=== PATIENT | male | born 1965 | race Caucasian/White ===

== ENCOUNTER → 2017-07-03 11:44 | Outpatient (CLI) | payer MEDICARE, OTHER ==
--- NOTE | ~2017-07-03 | HEMODYNAMI ---
PATIENT:ESTEBAN QUIÑONES MEDICAL RECORD: [id number] : 67 LOCATION:[facility] ADMISSION DATE: 07/03/17 Generatedon:07/03/201715:35 Patient name: ESTEBAN QUIÑONES Patient #: [id number] SSN: : 1965 Date of study: 07/03/2017 Page: Of Hemodynamic Procedure Report Patient Data Patient Demographics Procedure consent was obtained First Name: ESTEBAN Gender: Male Last Name: NURIA : 1965 [facility] Initial: YESENIA Age: 52 year(s) Patient #: [id number] Race: Unknown Additional ID: [id number] Contact details [address]: [address] [place] [address] State: [place] City: [place] Zip code: [address] Past Medical History Allergies Allergen Reaction Date Comments Reported Other allergy 07/03/2017 BENZODIAZEPINES, CEPHALOSPORINS, CIPRO, FISH CONTAINING PRODUCTS, IDODINATED CONTRAST- ORAL AND IV DYE, IODINE, LATEX, MEPERIDINE, PCNS, SHELLFISH DERIVED, SUFLA, TETANUS VACCINES AND TOXOID, VALIUM Admission Admission Data Admission Date: 07/03/2017 Admission Time: 11:44 Weight (lbs.): 242 Weight (kg.): 109.77 Lab Results Lab Result Date: 07/03/2017 Lab Result Time: 0:00 Biochemistry Name Units Result Min Max BUN mg/dl 20 --(----)*- 7 18 Creatinine mg/dl 1 --(--*-)-- 0.6 1.3 CBC Name Units Result Min Max Hemoglobin g/dl 14.1 --(*---)-- 13.5 17.5 Procedure Procedure Types Cath Procedure Diagnostic Procedure LHC LHC w/Coronaries Procedure Description Procedure Date Procedure Date: 07/03/2017 Procedure Start Time: 15:24 Procedure End Time: 15:34 Procedure Staff Name Function Esteban Montiel MD Performing Physician Mónica Pelayo RT Monitor Lavon Aleman RT Scrub Alexandro Lantigua RN Nurse Procedure Data Cath Procedure Fluoroscopy Diagnostic fluoroscopy Total fluoroscopy Time: 2.3 time: 2.3 min min Diagnostic fluoroscopy Total fluoroscopy dose: 597 dose: 597 mGy mGy Contrast Material Contrast Material Type Amount (ml) Isovue 300 71 Entry Location Entry Primary Successful Side Size Upsize Upsize Entry Closure Cohen ccessful Closure Location (Fr) 1 (Fr) 2 (Fr) Remarks Device Remarks Radial Right 6 Fr Mechanical artery Short Compression Estimated blood loss: 5 ml Diagnostic catheters Device Type Used For End Catheter Placement DIAGNOSTIC [place] 110cm 5 Procedure Fr catheter ([id number]) Procedure Complications No complications Procedure Medications Medication Administration Route Dosage 0.9% NaCl I.V. 100 ml/hr Heparin Flush Bag added to field 2 bags (1000units/500ml NS) Lidocaine 2% added to field 20 Radial Cocktail added to field 1 syringe (Verapomil 2mg/Nitro 400mcg/Heparin 1500units) Radial Cocktail I.A. 1 syringe (Verapomil 2mg/Nitro 400mcg/Heparin 1500units) Hemodynamics Rest Heart Rate: 98 (bpm) Pressure Samples Time Site Value (mmHg) Purpose Heart Use Rate(bpm) 15:26 LV 133/4,10 Snapshot 90 15:27 AO 111/77(91) Pullback 102 15:27 LV 109/8,9 Pullback 102 Gradients Valve Time Site 1 Site 2 Mean SEP/DFP Peak To Heart Use (mmHg) (sec/min) Peak Rate (mmHg) (bpm) Aortic 15:27 LV AO 0 102 109/8,9 111/77(91) Calculations Valve P-P Mean Valve Index Valve Source Name Gradient Area Flow (cm2) Aortic 0 0 Snapshots Pre Cath Intra NCS Post Cath Vital Signs Time Heart Resp SPO2 etCO2 NIBP (mmHg) Rhythm Pain Sedation Rate (ipm) (%) (mmHg) Status Level (bpm) 14:58:45 92 17 96 0 136/80(105) NSR 0 (11) 10(A) , No pain 15:03:26 91 19 95 0 129/83(103) NSR 0 (11) 10(A) , No pain 15:08:05 95 20 93 0 131/78(99) NSR 0 (11) 10(A) , No pain 15:12:43 97 19 93 0 128/80(103) NSR 0 (11) 10(A) , No pain 15:17:20 96 21 92 0 133/83(104) NSR 0 (11) 10(A) , No pain 15:21:58 96 14 92 0 130/84(101) NSR 0 (11) 10(A) , No pain 15:26:37 94 23 91 0 133/80(100) NSR 0 (11) 10(A) , No pain 15:31:16 96 14 91 0 123/73(101) NSR 0 (11) 10(A) , No pain Medications Time Medication Route Dose Verified Delivered Reason Notes Effectiveness by by 14:55:39 0.9% NaCl I.V. 100 Alexandro Alexandro Per ml/hr Rhina Lantigua physician RN RN 14:56:10 Heparin Flush added 2 bags Alexandro Alexandro used for Bag to Lorgary Lantigua procedure (1000units/500ml field RN RN NS) 14:56:21 Lidocaine 2% added 20ml Alexandro Alexandro for local to vial Lorigan Rhina anesthetic field RN KEYON 14:56:38 Radial Cocktail added 1 Alexandro Alexandro used for (Verapomil to syringe Lorigan Lorigan procedure 2mg/Nitro field KEYON TA 400mcg/Heparin 1500units) 15:24:45 Radial Cocktail I.A. 1 Alexandro Esteban for (Verapomil syringe Lorigan Tiana vasodilation 2mg/Nitro KEYON RODRIGUEZ 400mcg/Heparin 1500units) Procedure Log Time Note 14:33:01 Patient Weight : 242 lbs 14:33:33 Signed procedure consent form obtained from patient. 14:33:35 Time tracking: Regular hours 14:33:39 Plan of Care:Hemodynamics will remain stable., Cardiac rhythm will remain stable., Comfort level will be maintained., Respiratory function will remain adequate., Patient/ family verbilizes understanding of procedure., Procedure tolerated without complication., Recovers from procedure without complications.. 14:33:51 H&P Date Dictated: 06/11/2017 Within 30 days and on chart.. 14:36:38 Patient allergic to Other allergyBENZODIAZEPINES, CEPHALOSPORINS, CIPRO, FISH CONTAINING PRODUCTS, IDODINATED CONTRAST- ORAL AND IV DYE, IODINE, LATEX, MEPERIDINE, PCNS, SHELLFISH DERIVED, SUFLA, TETANUS VACCINES AND TOXOID, VALIUM 14:38:05 Lab Result : Creatinine 1 mg/dl 14:38:05 Lab Result : BUN 20 mg/dl 14:38:05 Lab Result : Hemoglobin 14.1 g/dl 14:38:15 Lavon Love RT(R) sent for patient. Start room use. 14:43:58 Patient received from Pre/Post Procedure Room to CCL 1 Alert and oriented. Tansferred to table in Supine position. 14:43:59 Warm blankets applied, and fiordaliza hugger turned on for patient comfort. 14:43:59 Correct patient and procedure confirmed by team. 14:44:00 ECG and BP/O2 sat monitors applied to patient. 14:55:39 0.9% NaCl 100 ml/hr I.V. was administered by Alexandro Lantigua RN; Per physician; 14:56:10 Heparin Flush Bag (1000units/500ml NS) 2 bags added to field was administered by Alexandro Lantigua RN; used for procedure; 14:56:21 Lidocaine 2% 20ml vial added to field was administered by Alexandro Lantigua RN; for local anesthetic; 14:56:38 Radial Cocktail (Verapomil 2mg/Nitro 400mcg/Heparin 1500units) 1 syringe added to field was administered by Alexandro Lantigua RN; used for procedure; 14:57:57 Vital chart was started 14:58:02 Baseline sample Acquired. 14:58:08 Rhythm: sinus tachycardia 14:58:08 Full Disclosure recording started 14:58:10 Pre-procedure instructions explained to patient. 14:58:10 Pre-op teaching completed and patient verbalized understanding. 14:58:12 Family in patients room. 14:58:14 Patient NPO since Midnight. 14:58:16 Is the patient allergic to Iodine/contrast media? Yes. 14:58:17 Was the patient premedicated? Yes 14:58:18 Is patient on blood thinner?Yes 14:58:21 ACC The patient was administered the following blood thiners within the last 24 hours: ACCPlavix 14:58:24 Patient diabetic? Yes. 14:58:25 If diabetic: On Metformin? No 14:58:28 Previous problem with sedation/anesthesia? Yes ? 14:58:29 Snore? Yes 14:58:30 Sleep apnea? Yes 14:58:31 Deviated septum? No 14:58:34 Opens mouth fully? Yes 14:58:37 Sticks out tongue? Yes 14:58:39 Airway obstruction? No ? 14:58:40 Dentures? No ? 14:59:35 Modified Pino's test Ulnar < 7 seconds 14:59:38 Patient pain scale 0/10 ?. 14:59:51 IV patent on arrival in left hand with 0.9% NaCl at O. 14:59:54 Lab results completed and on chart. 15:00:01 Right Radial & Right Groin area was prepped with chlora-prep and draped in sterile fashion 15:00:02 Alarms reviewed by R. N. 15:00:03 Sharps counted by scrub and verified by R.N. 15:04:09 Zero performed for pressure channel P1 15:20:05 --------ALL STOP TIME OUT------ 15:20:06 Final Timeout: patient, procedure, and site verified with staff and physician. All members of the team are in agreement. 15:20:07 Right Radial & Right Groin site verified by team. 15:20:11 Physical assessment completed. ASA score P 2 - A patient with mild systemic disease as per Esteban Montiel MD. 15:20:14 Sedation plan: IV Moderate Sedation Medication:Versed, Fentanyl 15:20:56 Use device set Radial Dx or PCI 15:20:58 ACIST Syringe (40212) opened to sterile field. 15:20:59 Bag Decanter () opened to sterile field. 15:21:00 ACIST Hand Control (94914) opened to sterile field. 15:21:01 ACIST Manifold (05651) opened to sterile field. 15:21:01 Tegaderm 4 x 4 (1626W) opened to sterile field. 15:21:03 Medline Cath Pack ([id number]) opened to sterile field. 15:21:03 SHEATH 6FR Slender ([id number]) opened to sterile field. 15:21:04 DIAGNOSTIC WIRE .035 260cm J wire (338506) opened to sterile field. 15:21:06 MBrace Wrist Support ([id number]) opened to sterile field. 15:23:57 Procedure started. 15:24:02 Local anesthetic to right radial artery with Lidocaine 2% by Esteban Montiel MD.INITIAL ACCESS ONLY 15:24:45 Radial Cocktail (Verapomil 2mg/Nitro 400mcg/Heparin 1500units) 1 syringe I.A. was administered by Esteban Montiel MD; for vasodilation; 15:25:09 A 6 Fr Short sheath was inserted into the Right Radial artery 15:25:17 A DIAGNOSTIC [place] 110cm 5 Fr catheter (873073) was advanced over the wire and used for Procedure. 15::23 LV gram done using POWELL 15::27 Injector settings: Ml/sec: 5, Volume: 15, 15:26:50 LV hemodynamics recorded. 15:27:10 EF : 45 % 15:28:05 RCA angiography performed. 15:29:22 LCA angiography performed. 15:29:51 Catheter removed. 15:29:53 TR BAND Standard ([id number]) opened to sterile field. 15:30:16 Sheath removed intact; hemostasis achieved with Mechanical Compression to the Right Radial artery. 15:30:18 Procedure ended.(Physican Out) 15:30:41 Fluoroscopy time 02.30 minutes. 15:30:45 Fluoroscopy dose: 597 mGy 15:30:45 Flurop Dose total: 597 15:31:15 Contrast amount:Isovue 300 71ml. 15:31:20 TR band inflated with 11cc of air. 15:31:54 Post-procedure physical assessment completed. ASA score P 2 - A patient with mild systemic disease as per Esteban Montiel MD. 15:31:58 Post procedure rhythm: unchanged. 15:31:59 Estimated blood loss: 5 ml 15:32:00 Post procedure instruction explained to patient.Patient verbalizes understanding. 15:32:01 Patient needs reinforcement of post procedure teaching. 15:34:15 Procedure and supply charges have been captured, reviewed, submitted and are correct. 15:34:19 Procedure Complication : No complications 15:34:29 Vital chart was stopped 15:34:47 See physician's report for complete and final results. 15:34:49 Report given to Pre/Post Procedure Room. 15:34:53 Patient transfered to Pre/Post Procedure Room with Bed. 15:34:55 Procedure ended. 15:34:55 Full Disclosure recording stopped 15:34:58 End room use (Document Last) Device Usage Item Name Manufacture Quantity Catalog Hospital Part Current Minima l Lot# / Number Charge Number Stock Stock Serial# Code ACIST Acsusana 1 35543 098783 782034 528782 20 Syringe Medical (01590) Systems Inc Bag Decanter Microtek 1 2001S 162541 64277 542766 5 (2001S) Medical Inc. ACIST Hand Acist 1 05620 298750 598385 149601 5 Control Medical (66699) Systems Inc ACIST Acist 1 64976 988094 416323 569665 5 Manifold Medical (68562) Systems Inc Tegaderm 4 x 3M 1 1626W 814865 483800 800603 5 4 (1626W) Medline Cath Cardinal 1 [id number] 356352 93254 577600 5 [facility] ([id number]) SHEATH 6FR Terumo 1 [id number] 423317 172727 560302 40 Slender ([id number]) DIAGNOSTIC [facility] [place] 1 206304 449427 495327 783908 30 WIRE .035 260cm J wire (206572) MBrace Wrist Advanced 1 140-0250-00 306200 94519 221079 5 Support Vascular ([id number]) Dynamics DIAGNOSTIC Terumo 1 40-9843 145799 894820 680061 5 [place] 110cm 5 Fr catheter (236393) TR BAND Terumo 1 [id number] 749070 855159 583026 40 Standard ([id number]) Signature Audit [place] Stage Time Signature Unsigned Intra-Procedure 07/03/2017 Mónica Pelayo 3:35:14 PM RT(R) Signatures Monitor : Mónica Pelayo Signature : RT Date : Time : [facility] [address] [place] [address]
--- NOTE | ~2017-07-03 | OP ---
PATIENT NAME: VAZQUEZ QUIÑONES MEDICAL RECORD: [id number] :67 LOCATION:D.CAT ADMISSION DATE: SURGEON: VAZQUEZ MARIE MD DATE OF OPERATION: 07/03/2017 PROCEDURE: Left heart catheterization and selective coronary angiography, right radial approach. CATHETERS: A radial sheath, Austin catheter. The procedure was well tolerated and the patient returned to pate. Sheath removed. TR band was placed. FINDINGS: Left ventriculography in the 30-degree POWELL view: Normal wall motion, normal systolic function. CORONARY ANATOMY. LEFT MAIN: Left main is free of disease. LAD: Free of disease in the diagonal system. CIRCUMFLEX: Free of disease in the marginal system. RIGHT CORONARY ARTERY: Dominant artery, gives rise to PDA, free of disease. IMPRESSION: Normal systolic function. Normal coronary anatomy. TRANSINT:[id number] Voice Confirmation ID: [id number] DOCUMENT ID: [id number] VAZQUEZ MARIE MD at 1214 CC: [id number] DICTATION DATE: 07/25/17 1308 BODY BUMPER: 07/25/17 1321 DEP CLI 07/03/17 [place] [id number] [place] [address]
[~2017-07-03 11:44] MED LIST: ALDACTONE25 MG PO; COREG25 MG PO; COZAAR50 MG PO; EFFEXOR XR150 MG PO; GLIPIZIDE10 MG PO; HYDROCODONE-APA1 TAB PO; MORPHINE SULFAT15 M4 PO; NIASPAN500 MG PO; PLAVIX75 MG PO; PRAVACHOL40 MG PO; PROBIOTIC1 EAC1 PO
[2017-07-03 12:26] VITALS: BP 130/79; BMI 31.7
[2017-07-03 12:53] LABS: BASOPHILS 0.1 % (0-2); EOSINOPHILS 0 % (0-7); HEMATOCRIT 41.3 % (42.0-54.0); HEMOGLOBIN 14.1 g/dL (13.5-17.5); IMMATURE GRANULOCYTES 0.3 % (0-5); LYMPHOCYTES 6.7 % (15-50); MCH 29.9 pg (26.0-34.0); MCHC 34.1 g/dL (31.0-37.0); MCV 87.7 fL (80.0-100.0); MEAN PLATELET VOLUME 9.8 fL (7.4-10.4); MONOCYTES 2.9 % (2-11); PLATELET COUNT 264 10x3/uL (130-400); RBC 4.71 10x6/uL (4.20-6.10); RDW 12.9 % (11.5-14.5); WBC 19.1 10x3/uL (4.8-10.8)
[2017-07-03 13:06] LABS: CALC OSMOLALITY 280 mosm/kg (275-300); CALCIUM 9.1 mg/dL (8.5-10.1); CARBON DIOXIDE 24.9 mmol/L (21.0-32.0); CHLORIDE - SERUM 101 mmol/L (98-107); POTASSIUM - SERUM 4.4 mmol/L (3.5-5.1); SODIUM 136 mmol/L (136-145); UREA NITROGEN 20 mg/dL (7-18); eGFR NON AFRICAN AMERICAN 84 mL/min (90-120)
[2017-07-03 13:07] LABS: GLUCOSE 212 mg/dL (74-106)
== END | disposition home or self-care (01) ==
LOC: D.CATH 11:44
PROVIDERS: Internal Medicine Interventional Cardiology
DX: I20.9 Angina pectoris, unspecified (principal); I50.9 Heart failure, unspecified; I42.9 Cardiomyopathy, unspecified; E78.5 Hyperlipidemia, unspecified; R09.89 Other specified symptoms and signs involving the circulatory and respiratory systems; Z01.812 Encounter for preprocedural laboratory examination

== ENCOUNTER 2017-12-25 03:14 | Emergency (ER) | payer MEDICARE, OTHER ==
[~2017-12-25] VITALS: Ht 185.4 cm; Wt 120.5 kg
[2017-12-25 03:20] VITALS: Ht 185.4 cm; Wt 120.5 kg
[2017-12-25] MEDS ORDERED: HUMULIN R100 U/ML (03:23)
[2017-12-25] MEDS ORDERED: HUMULIN N100 U/ML (03:23)
[2017-12-25 04:03] LABS: BASOPHILS 0.1 % (0-2); EOSINOPHILS 0.1 % (0-7); HEMOGLOBIN 15.3 g/dL (13.5-17.5); IMMATURE GRANULOCYTES 0.3 % (0-5); MCH 29.7 pg (26.0-34.0); MCHC 34.8 g/dL (31.0-37.0); MCV 85.4 fL (80.0-100.0); MEAN PLATELET VOLUME 9.9 fL (7.4-10.4); MONOCYTES 4.3 % (2-11); NEUTROPHILS 86.2 % (40-80); PLATELET COUNT 256 10x3/uL (130-400); RBC 5.15 10x6/uL (4.20-6.10); RDW 13.3 % (11.5-14.5)
[2017-12-25 04:13] LABS: APTT 24.1 SECONDS (22.8-39.4); INR 1.03 (0.85-1.17); PROTIME 13.1 SECONDS (11.6-15.0)
[2017-12-25 04:17] LABS: ALBUMIN 3.7 g/dL (3.4-5.0); ALKALINE PHOSPHATASE 83 U/L (46-116); ALT (SGPT) 33 U/L (10-68); CALC OSMOLALITY 277 mosm/kg (275-300); CALCIUM 8.7 mg/dL (8.5-10.1); CARBON DIOXIDE 28.6 mmol/L (21.0-32.0); CHLORIDE - SERUM 102 mmol/L (98-107); CREATININE - SERUM 1.2 mg/dL (0.6-1.3); GLUCOSE 193 mg/dL (74-106); POTASSIUM - SERUM 3.9 mmol/L (3.5-5.1); PROTEIN - SERUM 7.2 g/dL (6.4-8.2); SODIUM 136 mmol/L (136-145); UREA NITROGEN 16 mg/dL (7-18); eGFR NON AFRICAN AMERICAN 68 mL/min (90-120)
[2017-12-25 04:27] LABS: CREATINE KINASE 289 UL (21-232); TROPONIN-I < 0.017 ng/mL (0.000-0.060)
[2017-12-25 05:59] VITALS: BP 128/74
== END 2017-12-25 05:50 | disposition home or self-care (01) ==
LOC: D.ER 03:14
PROVIDERS: Family Medicine
DX: G45.9 Transient cerebral ischemic attack, unspecified (principal); Z86.73 Personal history of transient ischemic attack (TIA), and cerebral infarction without residual deficits; E11.9 Type 2 diabetes mellitus without complications

== ENCOUNTER → 2019-02-07 08:06 | Outpatient (CLI) | payer MEDICARE, OTHER ==
[2017-12-25 03:20] VITALS: BMI 35.0
[~2019-02-07 08:06] MED LIST changes: +HUMULIN N100 U/ML; +HUMULIN R100 U/ML
--- NOTE | 2019-02-10 13:29 | EC ---
PATIENT:VAZQUEZ QUIÑONES DATE OF SERVICE: 02/07/19 SEX: M MEDICAL RECORD: [id number] DATE OF : [birth year] [facility] AGE OF PATIENT: 53 ADMISSION DATE: 02/07/19 REFERRING PHYSICIAN: INTERPRETING PHYSICIAN: VAZQUEZ MARIE MD ECHOCARDIOGRAM REPORT ECHO CHARGES 4 ECHO COMPLETE Date: 02/07/19 CLINICAL DIAGNOSIS: CARDIOMYOPATHY ECHOCARDIOGRAPHIC MEASUREMENTS (adult normal given) AC root (d.<3.7cm) 3.6 cm LV Septum d (<1.2 cm> 1.3 cm Valve Excursion 1.6 cm LV Septum (systole) 1.4 cm Left Atria (s.<4.0cm> 4.0 cm LVPW d(<1.2cm) 1.3 cm RV (d.<2.3cm) 3.1 cm LVPW (sytole) 1.7 cm LV diastole(<5.6CM) 6.0 cm MV E-F(>70mm/sec) cm LV systole 5.0 cm LVOT Diameter 2.1 cm MV exc.(>10mm) 2.2 cm Est.ejection fraction (50-75%) % DOPPLER: LVIT cm/sec A 65.0 cm/sec E 49.0 cm/sec LA cm/sec RVSP 24 mmHg LVOT 101 cm/sec AOP1/2T m/s Asc. Ao 111 cm/sec RVOT 71 cm/sec RA cm/sec PA 115 cm/sec AV Gradient Peak 4.93 mmHg AV Mean 2.81 mmHg AV Area 3.1 cm MV Gradient Peak 2.23 mmHg MV Mean 1.10 mmHg MV Area cm COMMENTS: Spectral Scientist: 2 KHUSHBU BUNDY News Production Supervisor: 3 Dr. Marie TAPE# PACS Pericardial Effusion N DATE OF SERVICE: Adequate 2D, color flow, spectral Doppler, and M-mode. Mild LVH. LV internal dimension is normal. Wall motion is normal. EF is greater than or equal to 55%. Aortic valve is tricuspid. No evidence of stenosis by Doppler interrogation. The left atrium is upper limits of normal at 4.0 cm. Mitral valve shows no prolapse. Trace MR. Right-sided chambers are grossly normal. Trace TR. TRANSINT:[id number] Voice Confirmation ID: [id number] DOCUMENT ID: [id number] ECHOCARDIOGRAM REPORT [id number] VAZQUEZ QUIÑONES GREGORY A MD at 1329 CC: [id number] DICTATION DATE: 02/10/19 1303 CUPOLA REPAIRER: 02/10/19 1309 DEP CLI 02/07/19 [address] [place] [address]
== END | disposition home or self-care (01) ==
LOC: D.HCCECHO 08:06
PROVIDERS: ATTEND Internal Medicine Interventional Cardiology
DX: I42.9 Cardiomyopathy, unspecified (principal)

== ENCOUNTER → 2020-02-16 08:31 | Outpatient (CLI) | payer MEDICARE, OTHER ==
[2017-12-25 03:20] VITALS: BMI 35.0
--- NOTE | ~2020-02-16 | EC ---
PATIENT:VAZQUEZ QUIÑONES DATE OF SERVICE: 02/16/20 SEX: M MEDICAL RECORD: [id number] DATE OF : [birth year] [facility] AGE [facility]: 55 ADMISSION DATE: 02/16/20 REFERRING PHYSICIAN: INTERPRETING PHYSICIAN: VAZQUEZ MARIE MD ECHOCARDIOGRAM REPORT ECHO CHARGES 4 ECHO COMPLETE Date: 02/16/20 CLINICAL DIAGNOSIS: HX OF CARDIOMYOPATHY, ASSESS EF ECHOCARDIOGRAPHIC MEASUREMENTS (adult normal given) AC root (d.<3.7cm) 3.4 cm LV Septum d (<1.2 cm> 1.3 cm Valve Excursion 1.7 cm LV Septum (systole) 1.5 cm Left Atria (s.<4.0cm> 4.1 cm LVPW d(<1.2cm) 1.6 cm RV (d.<2.3cm) 3.7 cm LVPW (sytole) 2.0 cm LV diastole(<5.6CM) 6.1 cm MV E-F(>70mm/sec) cm LV systole 4.2 cm LVOT Diameter 2.1 cm MV exc.(>10mm) cm Est.ejection fraction (50-75%) % DOPPLER: LVIT cm/sec A 70.0 cm/sec E 61.0 cm/sec LA cm/sec RVSP 27 mmHg LVOT 107 cm/sec AOP1/2T m/s Asc. Ao 131 cm/sec RVOT 78 cm/sec RA cm/sec PA 113 cm/sec AV Gradient Peak 6.83 mmHg AV Mean 4.08 mmHg AV Area 2.9 cm MV Gradient Peak 3.10 mmHg MV Mean 1.52 mmHg MV Area cm COMMENTS: Teletypewriter Operator: 2 KHUSHBU BUNDY Earth Science Teacher: 3 Dr. Marie TAPE# PACS Pericardial Effusion N DATE OF SERVICE: Adequate 2D, color flow imaging, spectral Doppler, and M-mode. LVH is present. LV internal dimensions are dilated 6.1 cm. LV wall motion is normal. EF is greater than or equal to 55%. Aortic valve is tricuspid. No evidence of stenosis by Doppler interrogation. Left atrium upper limits of normal mildly dilated at 4.1 cm. Mitral valve shows no prolapse. Mild MR. Right-sided chambers grossly normal. Trace TR. TRANSINT:[id number] Voice Confirmation ID: [id number] DOCUMENT ID: [id number] ECHOCARDIOGRAM REPORT [id number] VAZQUEZ QUIÑONES GREGORY A MD CC: [id number] DICTATION DATE: 02/17/20 1458 COMMERCIAL RELIEF DRIVER: 02/17/202306 DEP CLI 02/16/20 [place] [address] [place] [id number]
== END | disposition home or self-care (01) ==
LOC: D.HCCECHO 08:31
PROVIDERS: ATTEND Internal Medicine Interventional Cardiology
DX: I42.9 Cardiomyopathy, unspecified (principal)